=== PATIENT | male | born 1975 | race Two or more races ===

== ENCOUNTER 2025-09-22 06:54 | Outpatient (REF) | payer BC, SELFPAY ==
--- NOTE | ~2025-09-22 | US_ITS ---
EXAMINATION: US SCROTUM CLINICAL INFORMATION: Right scrotal mass, rule out hernia. COMPARISON: None available. TECHNIQUE: A sonogram of the scrotum was performed assessing herman-scale appearance and color Doppler flow. Spectral Doppler analysis of the arterial and venous flow were performed in the testes bilaterally. FINDINGS: RIGHT: Right testicle measures 4.5 x 2.3 x 3.5 cm, volume 19.0 mL. No suspicious focal testicular parenchymal lesions are visualized. There is a 3 mm benign spermatocele/anechoic cyst in the lower pole. Spectral Doppler analysis of the arterial and venous flow is normal in the right testis. Right epididymal head is normal in size. There is a tiny, likely physiologic right hydrocele. There is no varicocele. Right epididymal Doppler flow is normal. LEFT: Left testicle measures 4.3 x 2.6 x 3.0 cm, volume 17.5 mL. No focal testicular parenchymal lesions are visualized. Spectral Doppler analysis of the arterial and venous flow is normal in the left testis. Left epididymal head is normal in size. There is a 5 x 4 x 4 mm left epididymal head cyst. There is a tiny, likely physiologic left hydrocele. There is no varicocele. Left epididymal Doppler flow is normal. US/US scrotum IMPRESSION: 1. Essentially normal bilateral testicular ultrasound. There is no evidence of suspicious testicular or epididymal mass, and no definitive evidence of hernia present. Electronically signed by: James Ruelas MD 09/22/2025 09:56 AM [facility]
== END 2025-09-22 06:55 | disposition home or self-care (01) ==
LOC: HO.UMASIMG 06:54
PROVIDERS: Visit Provider Emergency Medicine
DX: K40.30 Unilateral inguinal hernia, with obstruction, without gangrene, not specified as recurrent (principal)
CPT/HCPCS: 76870

== ENCOUNTER → 2025-09-22 09:00 | Outpatient (BNV) | payer BC, SELFPAY | PROVIDERS: Visit Provider Radiology Diagnostic Radiology | DX: R22.2 Localized swelling, mass and lump, trunk (principal) | CPT/HCPCS: 76870 ==